=== PATIENT | female | born 1990 | race African-American/Black ===

== ENCOUNTER 2024-09-29 13:59 | Outpatient (CLI) | payer BC, SELFPAY ==
[2024-09-29 14:45] VITALS: BP 118/65; PULSE 108
[2024-09-29 15:00] VITALS: BP 115/65; PULSE 104
[2024-09-29 15:15] VITALS: BP 123/67; PULSE 102
[2024-09-29 15:30] VITALS: BP 121/68; PULSE 100
[2024-09-29 15:45] VITALS: BP 125/73; PULSE 98
[2024-09-29 15:50] VITALS: BP 118/65; PULSE 101
[2024-09-29 16:29] LABS: OBXCEM ROM Plus Negative (Negative)
--- OUTSIDE RECORDS SUMMARY | 2024-09-29 16:44 | XMS_ITS | Patient Health Summary ---
Author Organization [facility] Address [address] [place] [address] Care Team Providers Care Student Development Coordinator Name Role Phone Unavailable Primary Care Provider Unavailabl e Note from [facility],non-owned Affiliates and Associated Physician Practices is amultiple site organization consisting of ambulatory clinics and hospital sitesin [place], [place], [place] and [place]. This disclosure is being madepursuant to the Care Everywhere program and may not contain all information available regarding this patient. Last updated 18.[facility] Allergies * Shellfish Allergy(Swelling) Medications * Be aware that medications may not be up to date on this document. Alwaysverify current medications with the patient. * NIFEdipine CR 24hr (Adalat CC) 60 MG tablet Take 1 (one) tablet by mouth once daily Take on an empty stomach. * Vit-DSS-Fe Fum-FA ( vitamin with iron) tablet Take 1 (one) tablet by mouth once daily * aspirin (Aspirin) 81 MG chew tablet Take 2 (two) tablets by mouth once daily * vitamin D3 (Cholecalciferol) 10 MCG (400 UNIT) tablet Take 1 (one) tablet by mouth once daily * ascorbic acid (Vitamin C) 500 MG tablet Take 1 (one) tablet by mouth once daily * lactobacillus (FLORAGEN) Take 1 (one) capsule by mouth once daily * ferrous sulfate 325 (65 FE) MG tablet Take 1 (one) tablet by mouth once daily Reasons: Iron Deficiency Active Problems Problem Noted Date Diagnosed Date Obesity affecting 06/04/2024 Class 1 obesity in adult 06/04/2024 Prediabetes in mother during Supervision of high-risk , unspecified trimester 05/07/2024 Pre-existing hypertension du ring in second trimester 05/07/2024 Advanced maternal age in multigravida, second tr imester 05/07/2024 Hx of preeclampsia, prior pr egnancy, currently , second trimester 05/07/2024 Social History Tobacco Use Types Packs/Day Years Used Date Smoking Tobacco: Never Smokeless Tobacco: Never Tobacco Cessation:Counseling Given: Not Answered Alcohol Use Standard Drinks/Week Comments Not Currently 0 (1 standard drink = 0.6 oz pur e alcohol) Estimated Date of Delivery Comme nts Yes 10/20/2024 Based on last me nstrual period of 01/14/2024 Sex and Gender Information Value Date Recorded Sex Assigned at Female 09/22/2024 10:13 AM WELL LOGGER Gender Identity Female 09/22/2024 10:13 AM WELL LOGGER Sexual Orientation Straight 09/22/2024 10 :13 AM WELL LOGGER Last Filed Vital Signs Vital Sign Reading Time Taken Comments Blood Pressure 118/76 09/29/2024 8:26 AM WELL LOGGER Pulse 92 09/29/2024 8:26 AM WELL LOGGER Temperature - - Respiratory Rate 18 06/04/2024 8:10 AM CDT Oxygen Saturation - - Inhaled Oxygen Concentration - - Weight 106.1 kg (233 lb 14.4 oz) 09/24/2024 8:05 AM WELL LOGGER Height 170.2 cm (5' 7 ) 07/30/2024 8:11 AM WELL LOGGER Body Mass Index 36.63 07/30/2024 8:11 AM WELL LOGGER Procedures * BIOPHYSICAL PROFILE W NST(Performed 09/29/2024) Performed for Pre-existing essential hypertension during in third trimester (HCC), Advanced maternal age in multigravida, third trimester (HCC), Hx of preeclampsia, prior , currently , second trimester ([facility]), Obesity affecting , antepartum, unspecified obesity type ([facility]), Prediabetes in mother during ([facility]), Encounter for ultrasound to assess growth ([facility]), Encounter for screening ([facility]) * BIOPHYSICAL PROFILE W NST(Performed 09/22/2024) Performed for Pre-existing essential hypertension during in third trimester (HCC), Advanced maternal age in multigravida, third trimester (HCC), Hx of preeclampsia, prior , currently , second trimester (HCC), Obesity affecting , antepartum, unspecified obesity type ([facility]), Prediabetes in mother during ([facility]), Encounter for ultrasound to assess growth (HCC), Encounter for screening (HCC) * BIOPHYSICAL PROFILE W NST(Performed 09/15/2024) Performed for Pre-existing essential hypertension during in third trimester (HCC), Advanced maternal age in multigravida, third trimester (HCC), Hx of preeclampsia, prior , currently , second trimester (HCC), Obesity affecting , antepartum, unspecified obesity type (HCC), Prediabetes in mother during (HCC), Encounter for ultrasound to assess growth (HCC), Encounter for screening (HCC) * BIOPHYSICAL PROFILE W NST(Performed 09/08/2024) Performed for Pre-existing essential hypertension during in third trimester (HCC), Advanced maternal age in multigravida, third trimester (HCC), Hx of preeclampsia, prior , currently , second trimester (HCC), Obesity affecting , antepartum, unspecified obesity type (HCC), Prediabetes in mother during (HCC), Encounter for ultrasound to assess growth (HCC), Encounter for screening (HCC) * BIOPHYSICAL PROFILE W NST(Performed 09/01/2024) Performed for Pre-existing essential hypertension during in third trimester (HCC), Advanced maternal age in multigravida, third trimester (HCC), Hx of preeclampsia, prior , currently , second trimester (HCC), Obesity affecting , antepartum, unspecified obesity type (HCC), Prediabetes in mother during (HCC), Encounter for ultrasound to assess growth (HCC), Encounter for screening ([facility]) * BIOPHYSICAL PROFILE W NST(Performed 08/27/2024) Performed for Pre-existing essential hypertension during in third trimester (HCC), Advanced maternal age in multigravida, third trimester (HCC), Hx of preeclampsia, prior , currently , second trimester (HCC), Obesity affecting , antepartum, unspecified obesity type (HCC), Prediabetes in mother during (HCC), Encounter for ultrasound to assess growth (HCC), Encounter for screening ([facility]) * PROTEIN CREATININE RATIO URINE RANDOM PNL(Performed 08/04/2024) * TSH REFLEX FREE T4(Performed 08/04/2024) * SONOGRAM - COMPLETE(Performed 07/30/2024) Performed for Supervision of high-risk , unspecified trimester (HCC), Pre-existing essential hypertension during in second trimester (HCC), Advanced maternal age in multigravida, second trimester (HCC), Hx of preeclampsia, prior , currently , second trimester (HCC), Obesity affecting , antepartum, unspecified obesity type (HCC), Prediabetes in mother during (HCC), 28 weeks gestation of (HCC) * SONOGRAM - COMPLETE(Performed 07/02/2024) Performed for Supervision of high-risk , unspecified trimester (HCC), Pre-existing essential hypertension during in second trimester (HCC), Advanced maternal age in multigravida, second trimester (HCC), Hx of preeclampsia, prior , currently , second trimester (HCC), Obesity affecting , antepartum, unspecified obesity type (HCC), Prediabetes in mother during (HCC), 24 weeks gestation of (HCC) * SONOGRAM - COMPLETE(Performed 06/04/2024) Performed for Supervision of high-risk , unspecified trimester (HCC), Pre-existing hypertension during in second trimester, unspecified pre- existing hypertension type (HCC), Advanced maternal age in multigravida, second trimester (HCC), Hx of preeclampsia, prior , currently , second trimester (HCC), 20 weeks gestation of (HCC) * COMPREHENSIVE METABOLIC PANEL(Performed 05/26/2024) * PROTEIN CREATININE RATIO URINE TIMED PNL(Performed 05/19/2024) * TSH(Performed 05/19/2024) * T4 FREE(Performed 05/19/2024) * COMPREHENSIVE METABOLIC PANEL(Performed 05/19/2024) * CREATININE CLEARANCE URINE TIMED + BLOOD(Performed 05/19/2024) * SONOGRAM - COMPLETE(Performed 05/07/2024) Performed for Chronic hypertension, Pre-eclampsia in second trimester ([facility]), History of cardiomyopathy, Pre-diabetes, Proteinuria affecting in second trimester ([facility]), Encounter for anatomic survey ([facility]) Results * BIOPHYSICAL PROFILE W NST (09/29/2024 7:30 AM WELL LOGGER) Only the most recent of6 resultswithin the time period is included. Linked Results Indication ======== CHTN on nifedipine, Pre-Diabetic A1C = 5.8%, Class I obesity AMA Prior preeclampsia 04/07/2024 Creatinine 0.65 mg/dL, Proteinuria 490 mg/day 05/19/2024 Creatinine 1.54 mg/dL, Proteinuria 156 mg/day 05/26/2024 Creatinine 0.53 mg/dL 08/04/2024 Proteinuria PCR 0.140 mg/mg History ====== OB History 6. Para 2 [id number] 1. live 2010. Gest. age 39 w + 0 d. Weight 2,331 g. Sex of child: female. Details: 2. live 2016. Gest. age 39 w + 0 d. Weight 3,175 g. Sex of child: male. Details: 3. elective termination 2020 4. elective termination 2021 5. elective termination 2023 Lab Tests Test Date Result NIPT Low risk Maternal Assessment = Physical Exam Height 170 cm, 5 ft 7 in. Weight 105 kg, 231 lb. Initial weight 101 kg, 222 lb. BMI 36.18 kg/m . Initial BMI 34.77 kg/m . Weight gain 4 kg, 9 lb Method ====== Transabdominal ultrasound examination. View: Sufficient ========= Rosales . Number of fetuses: 1 Dating ====== Date Details Gest. age BRIANNA LMP 01/14/2024 37 w + 0 d 10/20/2024 Stated BRIANNA 37 w + 0 d 10/20/2024 Assigned dating based on the LMP, selected on 07/02/2024 37 w + 0 d 10/20/2024 General Evaluation Cardiac activity present. FHR 153 bpm. Presentation: cephalic Placenta: Placental site: posterior Amniotic Fluid Assessment ===== Amount of AF: normal MVP 5.3 cm. MARIA G 14.2 cm. Q1 3.2 cm, Q2 2.1 cm, Q3 3.7 cm, Q4 5.3 cm Biophysical Profile 2: breathing movements 2: Gross body movements 2: tone 2: Amniotic fluid volume NST: reactive 05/22 Biophysical profile score Non Stress Test NST interpretation: reactive. Baseline FHR 120 bpm. Baseline variability: moderate. Accelerations: present. Decelerations: absent. Uterine activity: absent Growth Overview = Exam date GA BPD (mm) HC (mm) AC (mm) FL (mm) HL (mm) EFW (g) 07/02/2024 24w 2d 56.9 15% 226.5 46% 200.9 55% 41.9 19% 41 57% 676 39% 07/30/2024 28w 2d 72.6 66% 281.1 89% 251.2 74% 53.8 41% 50.6 80% 1350 71% 08/27/2024 32w 2d 82.1 64% 309.5 74% 281.4 46% 62.3 37% 55.3 50% 1991 47% 09/22/2024 36w 0d 87.2 35% 331.7 65% 321.1 61% 69.2 33% 62.4 72% 2822 51% Anatomy The following structures appear normal: Abdomen Stomach. Kidneys. Bladder. Impression ========= Single, live, intrauterine at 37w 0d Amniotic fluid volume: normal Biophysical profile: 05/22 Follow-up ======== Continue weekly BPP with 2x weekly NST Coding ====== Procedures 13076: US Uterus Limited 04624: Biophysical Profile W NST [facility] AG&P PACS Anatomical Region Laterality Modality Other 09/29/2024 7:30 AM WELL LOGGER Mindy Salvador MD [facility] ORDERABLES * TSH REFLEX FREE T4 (08/04/2024 8:19 AM WELL LOGGER) TSH with Reflex FT4 0.55 mIU/L [facility] Comment: Reference Range > or = 20 Years 0.40-4.50 Ranges First trimester 0.26-2.66 Second trimester 0.55-2.73 Third trimester 0.43-2.91 Test Performed at: [email or web address] [address] DIANNE MCCULLOUGH MD 08/04/2024 8:19 AM WELL LOGGER 08/04/2024 8:19 AM WELL LOGGER Jemma Miller APRN-ZINC SKIMMER LAB - CHEMI STRY ORDERABLES Performing Organization Address [facility] de Phone Number [address] [address] * PROTEIN CREATININE RATIO URINE RANDOM PNL (08/04/2024 8:19 AM WELL LOGGER) Creatinine Urine 150 20 - 275 mg/dL [facility] Protein/Creatinine Ratio 140 24 - 184 mg/g creat [facility] Protein/Creatinine Ratio 0.140 0.024 - 0.184 mg/mg creat [facility] Protein Random Urine 21 5 - 24 mg/dL [facility] Comment: Test Performed at: [email or web address] [address] DIANNE MCCULLOUGH MD 08/04/2024 8:19 AM WELL LOGGER 08/04/2024 8:19 AM WELL LOGGER Jemma ROMEO LAB - URINE CHEMISTRY ORDERABLES Performing Organization Address [facility] de Phone Number [address] [address] * SONOGRAM - COMPLETE (07/30/2024 7:36 AM WELL LOGGER) Only the most recent of4 resultswithin the time period is included. Linked Results Indication ======== CHTN on nifedipine, Pre-Diabetic A1C = 5.8%, Class I obesity AMA 34 years at BRIANNA with low-risk cf-DNA Prior H/O preeclampsia 04/07/2024 Creatinine 0.65 mg/dL, proteinuria 490 mg/day 05/19/2024 Creatinine 1.54 mg/dL, proteinuria 156 mg/day 05/26/2024 Creatinine 0.53 mg/dL History ====== OB History 6. Para 2 [id number] 1. live 2010. Gest. age 39 w + 0 d. Weight 2,331 g. Sex of child: female. Details: 2. live 2016. Gest. age 39 w + 0 d. Weight 3,175 g. Sex of child: male. Details: 3. elective termination 2020 4. elective termination 2021 5. elective termination 2023 Lab Tests Test Date Result NIPT Low risk Maternal Assessment Physical Exam Height 170 cm, 5 ft 7 in. Weight 104 kg, 230 lb. Initial weight 101 kg, 222 lb. BMI 36.02 kg/m . Initial BMI 34.77 kg/m . Weight gain 4 kg, 8 lb Method ====== Transabdominal ultrasound ========= Rosales . Number of fetuses: 1 Dating ====== Date Details Gest. age BRIANNA LMP 01/14/2024 28 w + 2 d 10/20/2024 U/S 07/30/2024 based upon AC, BPD, Femur, HC 29 w + 3 d 10/12/2024 Assigned dating based on the LMP, selected on 07/02/2024 28 w + 2 d 10/20/2024 General Evaluation Cardiac activity present. FHR 141 bpm. Presentation: cephalic Placenta: Placental site: posterior Amniotic fluid: Amount of AF: normal. MVP 4.6 cm. MARIA G 15.6 cm. Q1 4.6 cm, Q2 2.7 cm, Q3 4.2 cm, Q4 4.1 cm Biometry BPD 72.6 mm 29w 1d 66% Hadlock HC 281.1 mm 30w 6d 89% Hadlock AC 251.2 mm 29w 2d 74% Hadlock Femur 53.8 mm 28w 4d 41% Hadlock Humerus 50.6 mm 29w 4d 80% Joaquín HC / AC 1.12 -/- Hadlock Weight Calculation: EFW 1,350 g 71% Hadlock EFW (lb,oz) 3 lb 0 oz EFW by Hadlock (IEC-[id number]-FL) appropriate Growth Overview Exam date GA BPD (mm) HC (mm) AC (mm) FL (mm) HL (mm) EFW (g) 07/02/2024 24w 2d 56.9 15% 226.5 46% 200.9 55% 41.9 19% 41 57% 676 39% 07/30/2024 28w 2d 72.6 66% 281.1 89% 251.2 74% 53.8 41% 50.6 80% 1350 71% Anatomy The following structures appear normal: Heart / Thorax 4-chamber view. Abdomen Stomach. Kidneys. Bladder. Impression ========= Single, live, intrauterine at 28w 2d size & amniotic fluid volume are normal No malformations were seen within the limitations of ultrasound Follow-up ======== Repeat CMP & proteinuria assessment Follow up ultrasound for growth at 32 weeks Start 2x-weekly NST & 1x-weekly BPP at 32 weeks Coding ====== Procedures 31206: US Preg Uterus Follow Up [facility] AG&P PACS Anatomical Region Laterality Modality Other 07/30/2024 7:36 AM WELL LOGGER Mindy Salvador MD [facility] ORDERABLES * COMPREHENSIVE METABOLIC PANEL (05/26/2024 8:02 AM CDT) Only the most recent of2 resultswithin the time period is included. Glucose 81 65 - 139 mg/dL [facility] Comment: Non-fasting reference interval BUN 7 7 - 25 mg/dL [facility] Creatinine 0.53 0.50 - 0.97 mg/dL [facility] eGFR by Cystatin C 124 > OR = 60 mL/min/1. 73m2 [facility] BUN/Creatinine Ratio SEE NOTE: 6 - 22 (calc) [facility] Comment: Not Reported: BUN and Creatinine are within reference range. Sodium 137 135 - 146 mmol/L [facility] Potassium 3.9 3.5 - 5.3 mmol/L [facility] Chloride 104 98 - 110 mmol/L [facility] CO2 24 20 - 32 mmol/L [facility] Calcium 9.2 8.6 - 10.2 mg/dL [facility] Protein Total 6.4 6.1 - 8.1 g/dL [facility] Albumin 3.8 3.6 - 5.1 g/dL [facility] Globulin Total 2.6 1.9 - 3.7 g/dL (calc) [facility] Albumin/Globulin Ratio 1.5 1.0 - 2.5 (calc) [facility] Bilirubin Total 0.4 0.2 - 1.2 mg/dL [facility] Alkaline Phosphatase 67 31 - 125 U/L [facility] AST 18 10 - 30 U/L [facility] ALT 20 6 - 29 U/L [facility] Comment: Test Performed at: [employer] [place] [address] DIANNE MCCULLOUGH MD 05/26/2024 8:02 AM CDT 05/29/2024 7:18 PM CDT Jemma Miller APRN-ZINC SKIMMER LAB - CHEMI STRY ORDERABLES Performing Organization Address [facility] Co de Phone Number [address] [phone] [place] [address] * (ABNORMAL) PROTEIN CREATININE RATIO URINE TIMED PNL (05/19/2024 3:15 PM CDT) Creatinine 24 Hour Urine 1.64 0.50 - 2.15 g/24 h [facility] Protein 24 Hour Urine 95 <150 mg/g creat [facility] Protein/Creatini ne Ratio 0.095 <0.150 mg/mg creat [facility] Protein 24 Hour Urine 156(H) <150 mg/24 h [facility] Comment: TOTAL URINE VOLUME: 2600/24 Test Performed at: [facility] [place] [address] DIANNE MCCULLOUGH MD 05/19/2024 3:15 PM CDT 05/19/2024 3:31 PM CDT Alesha Oliveros MD LAB - URINE CHEMISTR Y ORDERABLES [address] [address] [place] [address] * (ABNORMAL) CREATININE CLEARANCE URINE TIMED + BLOOD (05/19/2024 3:15 PM CDT) [facility] Creatinine 1.54(H) 0.50 - 0.97 mg/dL [facility] eGFR by Cystatin C 45(L) > OR = 60 mL/min/1.7 3m2 [facility] Creatinine 24 Hour Urine 1.64 0.50 - 2.15 g/24 h [facility] Body Surface Area 2.13 [facility] Creatinine Clearance 60(L) 75 - 115 mL/min [facility] Height Feet 5 ft [facility] Height Inches 7 in [facility] Weight Lbs 225 [facility] Comment: Test Performed at: [place] [address] DIANNE MCCULLOUGH MD 05/19/2024 3:15 PM CDT 05/19/2024 3:31 PM CDT Alesha Oliveros MD LAB - URINE CHEMISTR Y ORDERABLES Performing Organization Address [facility] de Phone Number [address] [address] * (ABNORMAL) TSH (05/19/2024 3:15 PM CDT) [facility] TSH 0.26(L) mIU/L [facility] Comment: Reference Range > or = 20 Years 0.40-4.50 Ranges First trimester 0.26-2.66 Second trimester 0.55-2.73 Third trimester 0.43-2.91 Test Performed at: [facility] [place] [address] DIANNE MCCULLOUGH MD 05/19/2024 3:15 PM CDT 05/19/2024 3:31 PM CDT Alesha Oliveros MD LAB - CHEMISTRY ORDE RABLES Performing Organization Address [facility] Co de Phone Number [address] [address] [place] [address] * T4 FREE (05/19/2024 3:15 PM CDT) T4 Free 1.1 0.8 - 1.8 ng/dL [facility] Comment: Test Performed at: [facility] [address] [place] [address] DIANNE MCCULLOUGH MD 05/19/2024 3:15 PM CDT 05/19/2024 3:31 PM CDT Alesha Oliveros MD LAB - CHEMISTRY YENI [facility] Organization Address City/State/ZIP Co de Phone Number [address] [address] [place] [address]
--- OUTSIDE RECORDS SUMMARY | 2024-09-29 16:44 | XMS_ITS | Clinical Summary ---
Author Organization [facility] Address [address] [place] [address] Care Team Providers Care Cutting Table Operator First Name Role Phone Unavailable Primary Care Provider Unavailabl e Source Comments [facility],non-owned Affiliates and Associated Physician Practices is amultiple site organization consisting of ambulatory clinics and hospital sitesin [place], [place], [place] and [place]. This disclosure is being madepursuant to the Care Everywhere program and may not contain all information available regarding this patient. Last updated 18.[facility] Allergies Active Allergy Reactions Criticality Noted Date Comments Shellfish Allergy Swelling 05/02/2024 Medications * Be aware that medications may not be up to date on this document. Alwaysverify current medications with the patient. Medication Sig Dispensed Refills Start Date End Date Status NIFEdipine CR 24hr (Adalat CC) 60 MG tablet Take 1 (one) tablet by mouth once daily Take on an empty stomach. Active Vit-DSS-Fe Fum-FA ( vitamin with iron) tablet Take 1 (one) tablet by mouth once daily Active aspirin (Aspirin) 81 MG chew tablet Take 2 (two) tablets by mouth once daily Active vitamin D3 (Cholecalciferol) 10 MCG (400 UNIT) tablet Take 1 (one) tablet by mouth once daily Active ascorbic acid (Vitamin C) 500 MG tablet Take 1 (one) tablet by mouth once daily Active lactobacillus (FLORAGEN) Take 1 (one) capsule by mouth once daily Active ferrous sulfate 325 (65 FE) MG tabletIndications:Ir on Deficiency Take 1 (one) tablet by mouth once daily Reasons: Iron Deficiency Active Active Problems Problem Noted Date Diagnosed Date Obesity affecting 06/04/2024 Class 1 obesity in adult 06/04/2024 Prediabetes in mother during Supervision of high-risk , unspecified trimester 05/07/2024 Pre-existing hypertension du ring in second trimester 05/07/2024 Advanced maternal age in multigravida, second tr imester 05/07/2024 Hx of preeclampsia, prior pr egnancy, currently , second trimester 05/07/2024 Estimated Date of Delivery Comme nts Yes 10/20/2024 Based on last me nstrual period of 01/14/2024 Encounters Date Type Department Care Team Description 09/29/2024 7:30 AM CONTROL OFFICER Hospital Encounter [facility] [address] [place] [address] HeadShilpa MD 09/24/2024 7:39 AM CONTROL OFFICER - 09/24/2024 11:59 PM CONTROL OFFICER Hospital Encounter [facility] [address] [place] [phone] Giovana Rios MD CYCLE CONSULTANT Discharge Disposition: Home or Self Care 09/22/2024 7:30 AM CONTROL OFFICER - 09/22/2024 11:59 PM CONTROL OFFICER Hospital Encounter [facility] [address] [place] [phone] Shilpa Husain MD Discharge Disposition: Home or Self Care 09/15/2024 7:30 AM CONTROL OFFICER - 09/15/2024 11:59 PM CONTROL OFFICER Hospital Encounter [facility] [address] [place] [address] Lexii Barrientos MD Discharge Disposition: Home or Self Care 09/08/2024 7:30 AM CONTROL OFFICER - 09/08/2024 11:59 PM CONTROL OFFICER Hospital Encounter [facility] [address] [place] [address] Get Salamanca MD Discharge Disposition: Home or Self Care 09/01/2024 2:26 PM CONTROL OFFICER - 09/01/2024 11:59 PM CONTROL OFFICER Hospital Encounter [facility] [address] [place] [address] Shilpa Husain MD Discharge Disposition: Home or Self Care 08/27/2024 7:26 AM CONTROL OFFICER - 08/27/2024 11:59 PM CONTROL OFFICER Hospital Encounter [facility] [address] [place], [place] [phone] Duarte Galarza MD Discharge Disposition: Home or Self Care 08/04/2024 Orders Only [facility] [address] [place] [address] Jemma Miller, SECURITY OFFICER SUPERVISOR-WIDE PIECE GOODS INSPECTOR 07/30/2024 7:30 AM CONTROL OFFICER - 07/30/2024 11:59 PM CONTROL OFFICER Hospital Encounter [facility] [address] [place], [place] [phone] Duarte Galarza MD Discharge Disposition: Home or Self Care 07/02/2024 7:29 AM CONTROL OFFICER - 07/02/2024 11:59 PM CONTROL OFFICER Hospital Encounter [facility] [address] [place] [phone] Alesha Oliveros MD Discharge Disposition: Home or Self Care from Last 3 Months Family History Medical History Relation Name Comments Hypertension Father Hypertension Mother Cancer - Stomach Paternal Grandfather Relation Name Status Comments Father Mother Paternal Grandfather Social History Tobacco Use Types Packs/Day Years [...] Sex Assigned at Female 09/22/2024 10:13 AM CONTROL OFFICER Gender Identity Female 09/22/2024 10:13 AM CONTROL OFFICER Sexual Orientation Straight 09/22/2024 10 :13 AM CONTROL OFFICER Last Filed Vital Signs Vital Sign Reading Time Taken Comments Blood Pressure 118/76 09/29/2024 8:26 AM CONTROL OFFICER Pulse 92 09/29/2024 8:26 AM CONTROL OFFICER Temperature - - Respiratory Rate 18 06/04/2024 8:10 AM CDT Oxygen Saturation - - Inhaled Oxygen Concentration - - Weight 106.1 kg (233 lb 14.4 oz) 09/24/2024 8:05 AM CONTROL OFFICER Height 170.2 cm (5' 7 ) 07/30/2024 8:1 1 AM CONTROL OFFICER Body Mass Index 36.63 07/30/2024 8:11 AM CONTROL OFFICER Plan of Treatment Upcoming Encounters Date Type Department Care Team (Late st Contact Info) Description 10/06/2024 7:30 AM CONTROL OFFICER Hospital Encounter [facility] [address] [place] [id number] 10/13/2024 7:30 AM CONTROL OFFICER Hospital Encounter [facility] [address] [place] [phone] 10/20/2024 7:30 AM CDT Appointment [facility] [address] [place] [phone] Health Maintenance Due Date Last Done Comments PAP SMEAR 1989 HIV SCREENING 2004 HEPATITIS C SCREENING 08/05/2007 DTAP/TDAP/TD VACCINES (1 - Tdap) 2008 HEPATITIS B VACCINE (1 of 3 - 19+ 3-dose series) 2008 COVID-19 VACCINE ( - 2023-2 5 season) 2024 11/26/2020, 10/29/2020 OB-ONE HOUR GLUCOSE 07/14/2024 OB-TDAP CURRENT 07/21/2024 OB-RHOGAM INJECTION 07/28/2024 DEPRESSION SCREENING 08/13/2024 OB-GROUP B STREP SCREEN 09/15/2024 ZOSTER VACCINE (1 of 2) 2039 INFLUENZA VACCINE Completed 05/27/2024 HIB VACCINE Aged Out No longer eligi ble based on patient's age to complete this topic HPV VACCINE Aged Out No longer eligi ble based on patient's age to complete this topic MENINGOCOCCAL (Group B) VACCINE Aged Out No longer eligible b ased on patient's age to complete this topic MENINGOCOCCAL VACCINE Aged Out No noah tyree eligible based on patient's age to complete this topic PNEUMOCOCCAL VACCINE Aged Out No long er eligible based on patient's age to complete this topic Respiratory Syncytial Virus (RSV) Vaccine Pt: or over 60 yrs (No Doses Required) Completed Procedures Procedure Name Priority Date/Time Associated Diagnosis Comments BIOPHYSICAL PROFILE W NST Routine 09/29/2024 7:30 AM CONTROL OFFICER Pre-existing essential hypertension during in third trimester (HCC) Advanced maternal age in multigravida, third trimester (HCC) Hx of preeclampsia, prior , currently , second trimester (HCC) Obesity affecting , antepartum, unspecified obesity type (HCC) Prediabetes in mother during (HCC) Encounter for ultrasound to assess growth (HCC) Encounter for screening (HCC) BIOPHYSICAL PROFILE W NST Routine 09/22/2024 7:43 AM CONTROL OFFICER Pre-existing essential hypertension during in third trimester (HCC) Advanced maternal age in multigravida, third trimester (HCC) Hx of preeclampsia, prior , currently , second trimester (HCC) Obesity affecting , antepartum, unspecified obesity type (HCC) Prediabetes in mother during (HCC) Encounter for ultrasound to assess growth (HCC) Encounter for screening (HCC) BIOPHYSICAL PROFILE W NST Routine 09/15/2024 7:34 AM CONTROL OFFICER Pre-existing essential hypertension during in third trimester (HCC) Advanced maternal age in multigravida, third trimester (HCC) Hx of preeclampsia, prior , currently , second trimester (HCC) Obesity affecting , antepartum, unspecified obesity type (HCC) Prediabetes in mother during (HCC) Encounter for ultrasound to assess growth (HCC) Encounter for screening (HCC) BIOPHYSICAL PROFILE W NST Routine 09/08/2024 7:37 AM CONTROL OFFICER Pre-existing essential hypertension during in third trimester (HCC) Advanced maternal age in multigravida, third trimester (HCC) Hx of preeclampsia, prior , currently , second trimester (HCC) Obesity affecting , antepartum, unspecified obesity type (HCC) Prediabetes in mother during (HCC) Encounter for ultrasound to assess growth (HCC) Encounter for screening (HCC) BIOPHYSICAL PROFILE W NST Routine 09/01/2024 3:35 PM CONTROL OFFICER Pre-existing essential hypertension during in third trimester (HCC) Advanced maternal age in multigravida, third trimester (HCC) Hx of preeclampsia, prior , currently , second trimester (HCC) Obesity affecting , antepartum, unspecified obesity type (HCC) Prediabetes in mother during (HCC) Encounter for ultrasound to assess growth (HCC) Encounter for screening ([facility]) BIOPHYSICAL PROFILE W NST Routine 08/27/2024 7:28 AM CONTROL OFFICER Pre-existing essential hypertension during in third trimester (HCC) Advanced maternal age in multigravida, third trimester (HCC) Hx of preeclampsia, prior , currently , second trimester (HCC) Obesity affecting , antepartum, unspecified obesity type (HCC) Prediabetes in mother during (HCC) Encounter for ultrasound to assess growth (HCC) Encounter for screening ([facility]) PROTEIN CREATININE RATIO URINE RANDOM PNL 08/04/2024 8:19 AM CONTROL OFFICER TSH REFLEX FREE T4 08/04/2024 8: 19 AM CONTROL OFFICER SONOGRAM - COMPLETE Routine 07/30/2024 7 :36 AM CONTROL OFFICER Supervision of high-risk , unspecified trimester (HCC) Pre-existing essential hypertension during in second trimester (HCC) Advanced maternal age in multigravida, second trimester (HCC) Hx of preeclampsia, prior , currently , second trimester (HCC) Obesity affecting , antepartum, unspecified obesity type (HCC) Prediabetes in mother during (HCC) 28 weeks gestation of (HCC) SONOGRAM - COMPLETE Routine 07/02/2024 7 :31 AM CONTROL OFFICER Supervision of high-risk , unspecified trimester (HCC) Pre-existing essential hypertension during in second trimester (HCC) Advanced maternal age in multigravida, second trimester (HCC) Hx of preeclampsia, prior , currently , second trimester (HCC) Obesity affecting , antepartum, unspecified obesity type (HCC) Prediabetes in mother during (HCC) 24 weeks gestation of (HCC) from Last 3 Months Results * BIOPHYSICAL PROFILE W NST (09/29/2024 7:30 AM CONTROL OFFICER) Only the most recent of6 resultswithin the time period is included. Linked Results Indication ======== CHTN on nifedipine, Pre-Diabetic A1C = 5.8%, Class I obesity AMA Prior preeclampsia 04/07/2024 Creatinine 0.65 mg/dL, Proteinuria 490 mg/day 05/19/2024 Creatinine 1.54 mg/dL, Proteinuria 156 mg/day 05/26/2024 Creatinine 0.53 mg/dL 08/04/2024 Proteinuria PCR 0.140 mg/mg History ====== OB History 6. Para 2 [id number] 1. live 2010. Gest. age 39 w [...] with 2x weekly NST Coding ====== Procedures 74317: [place] Uterus Limited 94815: Biophysical Profile W NST [facility] [employer] PACS Anatomical Region Laterality Modality Other 09/29/2024 7:30 AM CONTROL OFFICER Mindy Salvador MD [facility] ORDERABLES * TSH REFLEX FREE T4 (08/04/2024 8:19 AM CONTROL OFFICER) TSH with Reflex FT4 0.55 mIU/L [facility] Comment: Reference Range > or = 20 Years 0.40-4.50 Ranges First trimester 0.26-2.66 Second trimester 0.55-2.73 Third trimester 0.43-2.91 Test Performed at: [facility] [address] [address] DIANNE MCCULLOUGH MD 08/04/2024 8:19 AM CONTROL OFFICER 08/04/2024 8:19 AM CONTROL OFFICER Jemma Miller APRN-WIDE PIECE GOODS INSPECTOR LAB - CHEMI STRY ORDERABLES Performing Organization Address [facility] de Phone Number [address] [address] * PROTEIN CREATININE RATIO URINE RANDOM PNL (08/04/2024 8:19 AM CONTROL OFFICER) Creatinine Urine 150 20 - 275 mg/dL [facility] Protein/Creatinine Ratio 140 24 - 184 mg/g creat [facility] Protein/Creatinine Ratio 0.140 0.024 - 0.184 mg/mg creat [facility] Protein Random Urine 21 5 - 24 mg/dL [facility] Comment: Test Performed at: [address] [address] DIANNE MCCULLOUGH MD 08/04/2024 8:19 AM CONTROL OFFICER 08/04/2024 8:19 AM CONTROL OFFICER Jemma Miller APRN-WIDE PIECE GOODS INSPECTOR LAB - URINE CHEMISTRY ORDERABLES Performing Organization Address [facility] Co de Phone Number [address] [address] * SONOGRAM - COMPLETE (07/30/2024 7:36 AM CONTROL OFFICER) Only the most recent of2 resultswithin the time period is included. Linked Results Indication ======== CHTN on nifedipine, Pre-Diabetic A1C = 5.8%, Class I obesity AMA 34 years at [facility] with low-risk cf-DNA Prior H/O preeclampsia 04/07/2024 Creatinine 0.65 mg/dL, proteinuria 490 mg/day 05/19/2024 Creatinine 1.54 mg/dL, proteinuria 156 mg/day 05/26/2024 Creatinine 0.53 mg/dL History ====== OB History 6. Para 2 [id number] 1. live 2010. Gest. age 39 w [...] 3 lb 0 oz EFW by Hadlock (MMI-EA-NO-FL) appropriate Growth Overview Exam date [place] BPD [...] BPP at 32 weeks Coding ====== Procedures 23008: US Preg Uterus Follow Up [facility] [employer] PACS Anatomical Region Laterality Modality Other 07/30/2024 7:36 AM CONTROL OFFICER Mindy Salvador MD [facility] ORDERABLES from Last 3 Months [facility] Personal/Family Self 1990
--- OUTSIDE RECORDS SUMMARY | 2024-09-29 16:44 | XMS_ITS | Encounter Summary ---
Author Organization [facility] Address [address] [facility] [address] [place] [address] Care Team Providers Care Housing Assistant Property Manager Name Role Phone Teresa Portillo Primary Care Provider + Encounter Details Date Type Department Care Team (Late st Contact Info) Description 10/09/2016 Orders Only [facility] ProviderCordelia MD [address] [place] [phone] Social History Tobacco Use Types Packs/Day Years Used Date Smoking Tobacco: Never Assessed Comments Unknown Sex and Gender Information Value Date Recorded Sex Assigned at Not on file Legal Sex Female 1:34 PM CDT Gender Identity Not on file Sexual Orientation Not on file documented as of this encounter Plan of Treatment Not on file documented as of this encounter Procedures Procedure Name Priority Date/Time Associated Diagnosis Comments CARDIOLOGY REPORT 10/09/2016 documented in this encounter Results * CARDIOLOGY REPORT (10/09/2016) Anatomical Region Laterality Modality Other Narrative 10/09/2016 Ordered by an unspecified provider. Historical Provider [facility]EN[facility] Final Result documented in this encounter Visit Diagnoses Not on filedocumented in this encounter Additional Health Concerns Infection Onset Date Last Indicated Resolved Time COVID: Suspected 03/23/2023 03/23/2023 03/23/2023 7:46 PM CDT documented as of this encounter Care Teams Housing Assistant Property Manager Relationship Specialty Start Date End Date Teresa Portillo PA PCP - General Physician Glass Blowing Instructor 09/26/22 documented as of this encounter
--- OUTSIDE RECORDS SUMMARY | 2024-09-29 16:44 | XMS_ITS | Referral Summary ---
Author Organization [facility] Address [address] [place] [address] Care Team Providers Care Plumbing Warehouse Helper Name Role Phone Unavailable Primary Care Provider Unavailabl e Source Comments [facility],non-owned Affiliates and Associated Physician Practices is [facility] consisting of ambulatory clinics and hospital sitesin [place], [place] and [place]. This disclosure is being madepursuant to the Care Everywhere program and may not contain all information available regarding this patient. Last updated 18.[facility] Encounters Date Type Department Care Team Description 09/29/2024 7:30 AM INVESTMENT BANKER Hospital Encounter Formerly [facility] [address] [place] [phone] Shilpa Husain MD 09/24/2024 7:39 AM INVESTMENT BANKER - 09/24/2024 11:59 PM INVESTMENT BANKER Hospital Encounter Formerly [facility] [address] [place] [phone] Giovana Rios MD PAPER GUILLOTINE OPERATOR Discharge Disposition: Home or Self Care 09/22/2024 7:30 AM INVESTMENT BANKER - 09/22/2024 11:59 PM INVESTMENT BANKER Hospital Encounter Formerly [facility] [address] [place] [phone] Shilpa Husain MD Discharge Disposition: Home or Self Care 09/15/2024 7:30 AM INVESTMENT BANKER - 09/15/2024 11:59 PM INVESTMENT BANKER Hospital Encounter Formerly [facility] [address] [place] [phone] Lexii Barrientos MD Discharge Disposition: Home or Self Care 09/08/2024 7:30 AM INVESTMENT BANKER - 09/08/2024 11:59 PM INVESTMENT BANKER Hospital Encounter Formerly [facility] [address] [place] [address] Get Salamanca MD Discharge Disposition: Home or Self Care 09/01/2024 2:26 PM INVESTMENT BANKER - 09/01/2024 11:59 PM INVESTMENT BANKER Hospital Encounter Formerly [facility] [address] [place] [address] Rodrigue, Shilpa Lewis MD Discharge Disposition: Home or Self Care 08/27/2024 7:26 AM INVESTMENT BANKER - 08/27/2024 11:59 PM INVESTMENT BANKER Hospital Encounter Formerly [facility] [address] [place] [address] Duarte Galarza MD Discharge Disposition: Home or Self Care 08/04/2024 Orders Only Formerly [facility] [address] [place] [address] Jemma Miller, PRODUCT ASSEMBLER-FOOD ADVISER 07/30/2024 7:30 AM INVESTMENT BANKER - 07/30/2024 11:59 PM INVESTMENT BANKER Hospital Encounter [facility]ly [facility] [address] [place] [address] Duarte Galarza MD Discharge Disposition: Home or Self Care 07/02/2024 7:29 AM INVESTMENT BANKER - 07/02/2024 11:59 PM INVESTMENT BANKER Hospital Encounter Formerly [facility] [address] [place] [address] Alesha Oliveros MD Discharge Disposition: Home or Self Care from Last 3 Months Allergies Active Allergy Reactions Criticality Noted Date [...] on last me nstrual period of 01/14/2024 Social History Tobacco Use Types Packs/Day Years [...] Sex Assigned at Female 09/22/2024 10:13 AM INVESTMENT BANKER Gender Identity Female 09/22/2024 10:13 AM INVESTMENT BANKER Sexual Orientation Straight 09/22/2024 10 :13 AM INVESTMENT BANKER Last Filed Vital Signs Vital Sign Reading Time Taken Comments Blood Pressure 118/76 09/29/2024 8:26 AM INVESTMENT BANKER Pulse 92 09/29/2024 8:26 AM INVESTMENT BANKER Temperature - - Respiratory Rate 18 06/04/2024 8:10 AM CDT Oxygen Saturation - - Inhaled Oxygen Concentration - - Weight 106.1 kg (233 lb 14.4 oz) 09/24/2024 8:05 AM INVESTMENT BANKER Height 170.2 cm (5' 7 ) 07/30/2024 8:11 AM INVESTMENT BANKER Body Mass Index 36.63 07/30/2024 8:11 AM INVESTMENT BANKER Plan of Treatment Upcoming Encounters Date Type Department Care Team (Late st Contact Info) Description 10/06/2024 7:30 AM INVESTMENT BANKER Hospital Encounter [facility] [address] [place] [phone] 10/13/2024 7:30 AM INVESTMENT BANKER Hospital Encounter [facility]ly [facility] [address] [place] [phone] 10/20/2024 7:30 AM CDT Appointment Formerly [facility] [address] [place] [phone] Procedures Procedure Name Priority Date/Time Associated Diagnosis Comments BIOPHYSICAL PROFILE W NST Routine 09/29/2024 7:30 AM INVESTMENT BANKER Pre-existing essential hypertension during in third trimester (HCC) Advanced maternal age in multigravida, third trimester (HCC) Hx of preeclampsia, prior , currently , second trimester (HCC) Obesity affecting , antepartum, unspecified obesity type (HCC) Prediabetes in mother during (HCC) Encounter for ultrasound to assess growth ([facility]) Encounter for screening ([facility]) BIOPHYSICAL PROFILE W NST Routine 09/22/2024 7:43 AM INVESTMENT BANKER Pre-existing essential hypertension during in third trimester (HCC) Advanced maternal age in multigravida, third trimester (HCC) Hx of preeclampsia, prior , currently , second trimester (HCC) Obesity affecting , antepartum, unspecified obesity type (HCC) Prediabetes in mother during (HCC) Encounter for ultrasound to assess growth (HCC) Encounter for screening ([facility]) BIOPHYSICAL PROFILE W NST Routine 09/15/2024 7:34 AM INVESTMENT BANKER Pre-existing essential hypertension during in third trimester (HCC) Advanced maternal age in multigravida, third trimester (HCC) Hx of preeclampsia, prior , currently , second trimester (HCC) Obesity affecting , antepartum, unspecified obesity type (HCC) Prediabetes in mother during (HCC) Encounter for ultrasound to assess growth (HCC) Encounter for screening (HCC) BIOPHYSICAL PROFILE W NST Routine 09/08/2024 7:37 AM INVESTMENT BANKER Pre-existing essential hypertension during in third trimester (HCC) Advanced maternal age in multigravida, third trimester (HCC) Hx of preeclampsia, prior , currently , second trimester (HCC) Obesity affecting , antepartum, unspecified obesity type (HCC) Prediabetes in mother during (HCC) Encounter for ultrasound to assess growth (HCC) Encounter for screening (HCC) BIOPHYSICAL PROFILE W NST Routine 09/01/2024 3:35 PM INVESTMENT BANKER Pre-existing essential hypertension during in third trimester (HCC) Advanced maternal age in multigravida, third trimester (HCC) Hx of preeclampsia, prior , currently , second trimester (HCC) Obesity affecting , antepartum, unspecified obesity type (HCC) Prediabetes in mother during (HCC) Encounter for ultrasound to assess growth (HCC) Encounter for screening (HCC) BIOPHYSICAL PROFILE W NST Routine 08/27/2024 7:28 AM INVESTMENT BANKER Pre-existing essential hypertension during in third trimester (HCC) Advanced maternal age in multigravida, third trimester (HCC) Hx of preeclampsia, prior , currently , second trimester (HCC) Obesity affecting , antepartum, unspecified obesity type (HCC) Prediabetes in mother during (HCC) Encounter for ultrasound to assess growth (HCC) Encounter for screening (HCC) PROTEIN CREATININE RATIO URINE RANDOM PNL 08/04/2024 8:19 AM INVESTMENT BANKER TSH REFLEX FREE T4 08/04/2024 8: 19 AM INVESTMENT BANKER SONOGRAM - COMPLETE Routine 07/30/2024 7 :36 AM INVESTMENT BANKER Supervision of high-risk , unspecified trimester (HCC) Pre-existing essential hypertension during in second trimester (HCC) Advanced maternal age in multigravida, second trimester (HCC) Hx of preeclampsia, prior , currently , second trimester (HCC) Obesity affecting , antepartum, unspecified obesity type (HCC) Prediabetes in mother during (HCC) 28 weeks gestation of (HCC) SONOGRAM - COMPLETE Routine 07/02/2024 7 :31 AM INVESTMENT BANKER Supervision of high-risk , unspecified trimester (HCC) [...] BIOPHYSICAL PROFILE W NST (09/29/2024 7:30 AM INVESTMENT BANKER) Only the most recent of6 resultswithin the time period is included. Linked Results Indication ======== CHTN on nifedipine, Pre-Diabetic A1C = 5.8%, Class I obesity AMA Prior preeclampsia 04/07/2024 Creatinine 0.65 mg/dL, Proteinuria 490 mg/day 05/19/2024 Creatinine 1.54 mg/dL, Proteinuria 156 mg/day 05/26/2024 Creatinine 0.53 mg/dL 08/04/2024 Proteinuria PCR 0.140 mg/mg History ====== OB History 6. Para 2 [id number] 1. live 2010. Gest. age 39 w [...] with 2x weekly NST Coding ====== Procedures [id number]: [place] Uterus Limited 51075: Biophysical Profile W NST [facility] PACS Anatomical Region Laterality Modality Other 09/29/2024 7:30 AM INVESTMENT BANKER Mindy Salvador MD [facility] ORDERABLES * TSH REFLEX FREE T4 (08/04/2024 8:19 AM INVESTMENT BANKER) TSH with Reflex FT4 0.55 mIU/L [facility] Comment: Reference Range > or = 20 Years 0.40-4.50 Ranges First trimester 0.26-2.66 Second trimester 0.55-2.73 Third trimester 0.43-2.91 Test Performed at: [facility] [address] DIANNE MCCULLOUGH MD 08/04/2024 8:19 AM INVESTMENT BANKER 08/04/2024 8:19 AM INVESTMENT BANKER Jemma Miller APRN-FOOD ADVISER LAB - CHEMI STRY ORDERABLES [address] [address] * PROTEIN CREATININE RATIO URINE RANDOM PNL (08/04/2024 8:19 AM INVESTMENT BANKER) Creatinine Urine 150 20 - 275 mg/dL [facility] Protein/Creatinine Ratio 140 24 - 184 mg/g creat [facility] Protein/Creatinine Ratio 0.140 0.024 - 0.184 mg/mg creat [facility] Protein Random Urine 21 5 - 24 mg/dL [facility] Comment: Test Performed at: [facility] [address] DIANNE MCCULLOUGH MD 08/04/2024 8:19 AM INVESTMENT BANKER 08/04/2024 8:19 AM INVESTMENT BANKER Jemma Miller PRODUCT ASSEMBLER-FOOD ADVISER LAB - URINE CHEMISTRY ORDERABLES [facility] [address] [place] [address] * SONOGRAM - COMPLETE (07/30/2024 7:36 AM INVESTMENT BANKER) Only the most recent of2 resultswithin the time period is included. Linked Results Indication ======== CHTN on nifedipine, Pre-Diabetic A1C = 5.8%, Class I obesity AMA 34 years at [facility] with low-risk cf-DNA Prior H/O preeclampsia 04/07/2024 Creatinine 0.65 mg/dL, proteinuria 490 mg/day 05/19/2024 Creatinine 1.54 mg/dL, proteinuria 156 mg/day 05/26/2024 Creatinine 0.53 mg/dL History ====== OB History 6. Para 2 [id number] 1. live 2010. Gest. age 39 w [...] 3 lb 0 oz EFW by [facility]lock ([id number]) appropriate Growth Overview Exam date [place] BPD [...] BPP at 32 weeks Coding ====== Procedures [id number]: US Preg [facility]us [facility] Anatomical Region Laterality Modality Other 07/30/2024 7:36 AM INVESTMENT BANKER Mindy Salvador MD [facility] ORDERABLES from Last 3 Months Ludwig Chung Personal/Family Self 1990
--- OUTSIDE RECORDS SUMMARY | 2024-09-29 16:45 | XMS_ITS | Encounter Summary ---
Author Organization [facility] Address [address] [facility] [place] [address] Care Team Providers Care Plush Brusher Name Role Phone Unavailable Primary Care Provider Unavailabl e Reason for Referral * (Routine) - Open Specialty Diagnoses / Procedures Referred By Contac t Referred To Contact Diagnoses Pre-existing essential hypertension during in second trimester (HCC) Advanced maternal age in multigravida, second trimester (HCC) Hx of preeclampsia, prior , currently , second trimester ([facility]) Obesity affecting , antepartum, unspecified obesity type ([facility]) Prediabetes in mother during (HCC) Encounter for ultrasound to assess growth (HCC) Encounter for screening ([facility]) Procedures BIOPHYSICAL PROFILE W NST Mindy Salvador MD [address] [place] [address] Referral ID Status Reason Start Date Expiration Date Visits Re quested Visits Authorized [id number] Open 08/20/2024 08/20/2025 6 6 ENTERS HELPER Reason for Visit * Reason Comments Ultrasound Non-stress Test Encounter Details Date Type Department Care Team (Late st Contact Info) Description 09/29/2024 7:30 AM CARPENTERS HELPER Hospital Encounter [facility] Maternal & Care [address] [place] [address] Head, Shilpa Lewis MD [address] [place] [address] Social History Tobacco Use Types Packs/Day Years Used Date Smoking Tobacco: Never Smokeless Tobacco: Never Alcohol Use Standard Drinks/Week Comments Not Currently 0 (1 standard drink = 0.6 oz pur e alcohol) Estimated Date of Delivery Comme nts Yes 10/20/2024 Based on last me nstrual period of 01/14/2024 Sex and Gender Information Value Date Recorded Sex Assigned at Female 09/22/2024 10:13 AM CARPENTERS HELPER Gender Identity Female 09/22/2024 10:13 AM CARPENTERS HELPER Sexual Orientation Straight 09/22/2024 10 :13 AM CARPENTERS HELPER documented as of this encounter Last Filed Vital Signs Vital Sign Reading Time Taken Comments Blood Pressure 118/76 09/29/2024 8:26 AM CARPENTERS HELPER Pulse 92 09/29/2024 8:26 AM CARPENTERS HELPER Temperature - - Respiratory Rate - - Oxygen Saturation - - Inhaled Oxygen Concentration - - Weight - - Height - - Body Mass Index - - documented in this encounter Progress Notes * Bettye Yang, RN - 09/29/2024 8:28 AM CST Patient here today for screening. Patient reports positive movement, all the time .Denies cramping, contractions, vaginal bleeding and leakage of fluid. Denies headache, visual changes, and RUQ pain. Patient to continue weekly BPP/NST with MFM and second NST with her OB. Bettye Yang RN 09/29/2024 8:31 AM ENTERS HELPER documented in this encounter Plan of Treatment Upcoming Encounters Date Type Department Care Team (Late st Contact Info) Description 10/06/2024 7:30 AM CARPENTERS HELPER Hospital Encounter [facility] Maternal & Care [address] [place] [phone] 10/13/2024 7:30 AM CARPENTERS HELPER Hospital Encounter [facility] Maternal & Care [address] [place] [phone] 10/20/2024 7:30 AM CDT Appointment [facility] Maternal & Care [address] [place] [phone] documented as of this encounter Procedures Procedure Name Priority Date/Time Associated Diagnosis Comments BIOPHYSICAL PROFILE W NST Routine 09/29/2024 7:30 AM CARPENTERS HELPER Pre-existing essential hypertension during in third trimester ([facility]) Advanced maternal age in multigravida, third trimester (HCC) Hx of preeclampsia, prior , currently , second trimester (HCC) Obesity affecting , antepartum, unspecified obesity type ([facility]) Prediabetes in mother during ([facility]) Encounter for ultrasound to assess growth ([facility]) Encounter for screening ([facility]) documented in this encounter Results * BIOPHYSICAL PROFILE W NST (09/29/2024 7:30 AM CARPENTERS HELPER) Linked Results Indication ======== CHTN on nifedipine, Pre-Diabetic A1C = 5.8%, Class I obesity AMA Prior preeclampsia 04/07/2024 Creatinine 0.65 mg/dL, Proteinuria 490 mg/day 05/19/2024 Creatinine 1.54 mg/dL, Proteinuria 156 mg/day 05/26/2024 Creatinine 0.53 mg/dL 08/04/2024 Proteinuria PCR 0.140 mg/mg History ====== OB History 6. Para 2 [id number] 1. live 2010. Gest. age 39 w [...] with 2x weekly NST Coding ====== Procedures [id number]: US Uterus Limited 40450: Biophysical Profile W NST . [facility] Science PACS Anatomical Region Laterality Modality Other 09/29/2024 7:30 AM CARPENTERS HELPER Mindy Salvador MD [facility] ORDERABLES documented in this encounter Visit Diagnoses Diagnosis Supervision of high-risk , unspecified trimester ([facility])- Primary Advanced maternal age in multigravida, second trimester ([facility]) Hx of preeclampsia, prior , currently , second trimester ([facility]) Obesity affecting , antepartum, unspecified obesity type ([facility]) Prediabetes in mother during ([facility]) 36 weeks gestation of ([facility]) state, incidental Pre-existing essential hypertension during in third trimester ([facility]) Advanced maternal age in multigravida, third trimester ([facility]) Encounter for ultrasound to assess growth ([facility]) Encounter for screening ([facility]) Supervision of high-risk , unspecified trimester ([facility])- Primary Advanced maternal age in multigravida, second trimester ([facility]) Hx of preeclampsia, prior , currently , second trimester ([facility]) Prediabetes in mother during ([facility]) Supervision of high-risk , unspecified trimester ([facility])- Primary Advanced maternal age in multigravida, second trimester ([facility]) Hx of preeclampsia, prior , currently , second trimester ([facility]) Prediabetes in mother during ([facility]) Encounter for screening ([facility]) 39 weeks gestation of ([facility]) state, incidental documented in this encounter
--- OUTSIDE RECORDS SUMMARY | 2024-09-29 16:45 | XMS_ITS | Clinical Summary ---
Author Organization [facility] Address [address] [place] [id number] Care Team Providers Care Pickle Processor Name Role Phone Teresa Portillo Primary Care Provider + Allergies No known active allergies Medications cyclobenzaprine (FLEXERIL) 10 mg tablet Take 1 tablet (10 mg total) by mouth 3 (three) times a day as needed for muscle spasms 12 tablet 3 Active ondansetron ODT (ZOFRAN-ODT) 4 mg disintegrating tablet Take 1 tablet (4 mg total) by mouth every 8 (eight) hours as needed for nausea or vomiting 20 tablet 3 Active Social History Tobacco Use Types Packs/Day Years Used Date Smoking Tobacco: Never Assessed Personal Safety Answer Date Recorded Have you ever been in or are you currently in a harmful physical or emotional relationship or is someone making you feel afraid or unsafe? Denies 02/07/2024 Comments No Sex and Gender Information Value Date Recorded Sex Assigned at Not on file Legal Sex Female 1:34 PM CDT Gender Identity Not on file Sexual Orientation Not on file Obstetrics History Last Filed Vital Signs Vital Sign Reading Time Taken Comments Blood Pressure 139/78 02/07/2024 5:35 PM CDT Pulse 78 02/07/2024 5:35 PM CDT Temperature 36.7 C (98.1 F) 02/07/2024 2:25 PM CDT Respiratory Rate 18 02/07/2024 5:35 PM CDT Oxygen Saturation 100% 02/07/2024 5:35 PM CDT Inhaled Oxygen Concentration - - Weight 101.1 kg (222 lb 14.2 oz) 02/07/2024 2:25 PM CDT Height 170.2 cm (5' 7 ) 02/07/2024 2:25 PM CDT Body Mass Index 34.91 02/07/2024 2:25 PM CDT Plan of Treatment Health Maintenance Due Date Last Done Comments Cervical Cancer Screening 1989 Depression Screening 1989 Hepatitis C Screening 1989 DTaP/Tdap/Td Vaccine (1 - Tdap) 2000 Varicella Vaccines (1 of 2 - 13+ 2-dose series) 2002 Hepatitis B Screening 2007 Regular Well Visit/Exam 18-64 2007 Covid-19 Vaccine (3 - 2023-2 5 season) 2024 11/26/2020, 10/29/2020 Influenza Vaccine (#1) 2024 HPV Vaccines Aged Out No longer eligi ble based on patient's age to complete this topic Pneumococcal vaccine <65 Aged Out No longer eligible based on patient's age to complete this topic Insurance [facility] M[facility] Care Teams Pickle Processor Relationship Specialty Start Date End Date Teresa Portillo PA PCP - General Physician Beverage Specialist 09/26/22
--- OUTSIDE RECORDS SUMMARY | 2024-09-29 16:45 | XMS_ITS | Data Portability ---
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 Lab CMP, serum or plasma 2022 023 [facility], [address] [place] [address], [address], [place], [address], 19:08:33 lipid panel, serum 2022 023 [facility], [address] [place] [address], [address], [place], [address], 19:08:33 CBC w/ auto diff 2022 023 [facility], [address] [place] [address], [address], [place], [address], 19:08:34 microalbumi n/creatinin e, mass ratio, urine 2022 023 [facility], [address], [address], [place], [address], 3 10:13:47 Referral None recorded. Procedures None recorded. Surgeries None recorded. Imaging None recorded. Medication Orders nifedipine ER 30 mg tablet,exte nded release 24 hr 2023 024 [id number], [address] [place], [place], [id number], 4 10:03:21 Patient TargetsNo targets recorded. Patient Instructions Encounter Date Encounter Id Patient Instructions Last Modified By Organization Details Last Modified Time 12/04/2023 [id number] A healthy lifestyle: care instructions Not available 12/04/2023 14:06:07 Reason for Referral None Reported. Results Created Date Observation Date Name Description Value Unit Range Abnormal Flag Note LastModifiedBy Organization Detail LastModifiedTime 03/26/2003/26/2023 LIPID PANEL cholesterol, total 132 mg/dL 100-19 9 Not Available [facility] [address] [place], [address], 03/26/2023 19:08:33 03/26/2003/26/2023 LIPID PANEL triglyceride s 72 mg/dL 0-149 Not Available [facility] [address] [place], [address], 03/26/2023 19:08:33 03/26/2003/26/2023 LIPID PANEL HDL cholesterol 50 mg/dL 40-999 Not Available [facility] [address] [place], [address], 03/26/2023 19:08:33 03/26/20 23 03/26/2023 LIPID PANEL VLDL cholesterol leann 14 mg/dL 5-40 Not Available [facility] [address] [place], [address], 03/26/2023 19:08:33 03/26/20 23 03/26/2023 LIPID PANEL LDL chol calc (nih) 77 mg/dL 0-99 Not Available [facility] [address] [place], [address], 03/26/2023 19:08:33 03/26/20 23 03/26/2023 COMP. METAB OLIC PANEL (14) glucose 87 mg/dL 70-99 Not Available [facility] [address] [place] [address], [address], 03/26/2023 19:08:33 03/26/20 23 03/26/2023 COMP. METAB OLIC PANEL (14) BUN 10 mg/dL 6-20 Not Available [facility] [address] [place] [address], [address], 03/26/2023 19:08:33 03/26/20 23 03/26/2023 COMP. METAB OLIC PANEL (14) creatinine 0.77 mg/dL 0.76-1 .27 Not Available [facility] [address] [place], [address], 03/26/2023 19:08:33 03/26/20 23 03/26/2023 COMP. METAB OLIC PANEL (14) eGFR 104 >=60 Units for eGFR value s are mL/mi n/1.7 3 The eGFR Calcu latio n has not been valid ated for patie nts under the age of 18. If test resul ts are displ ayed for a patie nt under the age of 18, disre noni that value . Not Available [facility] [address] [place] [address], [address], 03/26/2023 19:08:33 03/26/20 23 03/26/2023 COMP. METAB OLIC PANEL (14) BUN/creatini ne ratio 13 9-23 Not Available [facility] [address] [place], [address], 03/26/2023 19:08:33 03/26/20 23 03/26/2023 COMP. METAB OLIC PANEL (14) sodium 138 mmol/ L 134-14 4 Not Available [facility] [address] [place], [address], 03/26/2023 19:08:33 03/26/20 23 03/26/2023 COMP. METAB OLIC PANEL (14) potassium 4.0 mmol/ L 3.5-5. 2 Not Available [facility] [address] [place], [address], 03/26/2023 19:08:33 03/26/20 23 03/26/2023 COMP. METAB OLIC PANEL (14) chloride 102 mmol/ L 96-106 Not Available [facility] [address] [place] [address], [address], 03/26/2023 19:08:33 03/26/20 23 03/26/2023 COMP. METAB OLIC PANEL (14) carbon dioxide, total 24 mmol/ L 20-29 Not Available [facility] [address] [place], [address], 03/26/2023 19:08:33 03/26/20 23 03/26/2023 COMP. METAB OLIC PANEL (14) calcium 9.6 mg/dL 8.7-10 .2 Not Available [facility] [address] [place], [address], 03/26/2023 19:08:33 03/26/20 23 03/26/2023 COMP. METAB OLIC PANEL (14) protein, total 7.7 g/dL 6.0-8. 5 Not Available [facility] [address] [place], [address], 03/26/2023 19:08:33 03/26/20 23 03/26/2023 COMP. METAB OLIC PANEL (14) albumin 4.7 g/dL 3.9-4. 9 Not Available [facility] [address] [place], [address], 03/26/2023 19:08:33 03/26/20 23 03/26/2023 COMP. METAB OLIC PANEL (14) globulin, total 3.0 g/dL 1.5-4. 5 Not Available [facility] [address] [place], [address], 03/26/2023 19:08:33 03/26/20 23 03/26/2023 COMP. METAB OLIC PANEL (14) A/G ratio 1.6 1.2-2. 2 Not Available [facility] [address] [place], [address], 03/26/2023 19:08:33 03/26/20 23 03/26/2023 COMP. METAB OLIC PANEL (14) bilirubin, total 0.5 mg/dL 0.0-1. 2 Not Available [facility] [address] [place], [address], 03/26/2023 19:08:33 03/26/20 23 03/26/2023 COMP. METAB OLIC PANEL (14) alkaline phosphatase 79 IU/L 44-121 Not Available [facility] [address] [place], [address], 03/26/2023 19:08:33 03/26/20 23 03/26/2023 COMP. METAB OLIC PANEL (14) AST (SGOT) 27 IU/L 0-40 Not Available [facility] [address] [place], [address], 03/26/2023 19:08:33 03/26/20 23 03/26/2023 COMP. METAB OLIC PANEL (14) ALT (SGPT) 30 IU/L 0-32 Not Available [facility] [address] [place], [address], 03/26/2023 19:08:33 03/26/20 23 03/26/2023 CBC WITH DIFFE RENTI AL/PL ATELE T WBC 6.0 x10e3 /uL 3.4-10 .8 Not Available [facility] [address] [place], [address], 03/26/2023 19:08:34 03/26/20 23 03/26/2023 CBC WITH DIFFE RENTI AL/PL ATELE T RBC 4.29 x10e6 /uL 3.77-5 .28 Not Available [facility] [address] [place], [address], 03/26/2023 19:08:34 03/26/20 23 03/26/2023 CBC WITH DIFFE RENTI AL/PL ATELE T hemoglobin 12.6 g/dL 11.1-1 5.9 Not Available [facility] [address] [place], [address], 03/26/2023 19:08:34 03/26/20 23 03/26/2023 CBC WITH DIFFE RENTI AL/PL ATELE T hematocrit 39.7 % 34.0-4 6.6 Not Available [facility] [address] [place], [address], 03/26/2023 19:08:34 03/26/20 23 03/26/2023 CBC WITH DIFFE RENTI AL/PL ATELE T MCV 93 fL 79-97 Not Available [facility] [address] [place], [address], 03/26/2023 19:08:34 03/26/20 23 03/26/2023 CBC WITH DIFFE RENTI AL/PL ATELE T MCH 29.4 pg 26.6-3 3.0 Not Available [facility] [address] [place], [address], 03/26/2023 19:08:34 03/26/20 23 03/26/2023 CBC WITH DIFFE RENTI AL/PL ATELE T MCHC 31.7 g/dL 31.5-3 5.7 Not Available [facility] [address] [place], [address], 03/26/2023 19:08:34 03/26/20 23 03/26/2023 CBC WITH DIFFE RENTI AL/PL ATELE T RDW 12.7 % 11.5-1 4.5 Not Available [facility] [address] [place], [address], 03/26/2023 19:08:34 03/26/20 23 03/26/2023 CBC WITH DIFFE RENTI AL/PL ATELE T platelets 302 x10e3 /uL 150-45 0 Not Available [facility] [address] [place], [address], 03/26/2023 19:08:34 03/26/20 23 03/26/2023 CBC WITH DIFFE RENTI AL/PL ATELE T neutrophils 67 % notest b. Not Available [facility] [address] [place], [address], 03/26/2023 19:08:34 03/26/20 23 03/26/2023 CBC WITH DIFFE RENTI AL/PL ATELE T lymphs 25 % notest b. Not Available [facility] [address] [place], [address], 03/26/2023 19:08:34 03/26/20 23 03/26/2023 CBC WITH DIFFE RENTI AL/PL ATELE T monocytes 6 % notest b. Not Available [facility] [address] [place], [address], 03/26/2023 19:08:34 03/26/20 23 03/26/2023 CBC WITH DIFFE RENTI AL/PL ATELE T eos 2 % notest b. Not Available [facility] [address] [place], [address], 03/26/2023 19:08:34 03/26/20 23 03/26/2023 CBC WITH DIFFE RENTI AL/PL ATELE T basos 0 % notest b. Not Available [facility] [address] [place], [address], 03/26/2023 19:08:34 03/26/20 23 03/26/2023 CBC WITH DIFFE RENTI AL/PL ATELE T neutrophils (absolute) 4.0 x10e3 /uL 1.4-7. 0 Not Available [facility] [address] [place], [address], 03/26/2023 19:08:34 03/26/20 23 03/26/2023 CBC WITH DIFFE RENTI AL/PL ATELE T lymphs (absolute) 1.5 x10e3 /uL 0.7-3. 1 Not Available [facility] [address] [place], [address], 03/26/2023 19:08:34 03/26/20 23 03/26/2023 CBC WITH DIFFE RENTI AL/PL ATELE T monocytes(ab solute) 0.4 x10e3 /uL 0.1-0. 9 Not Available [facility] [address] [place], [address], 03/26/2023 19:08:34 03/26/20 23 03/26/2023 CBC WITH DIFFE RENTI AL/PL ATELE T eos (absolute) 0.1 x10e3 /uL 0.0-0. 4 Not Available [facility] [address] [place], [address], 03/26/2023 19:08:34 03/26/20 23 03/26/2023 CBC WITH DIFFE RENTI AL/PL ATELE T baso (absolute) 0.0 x10e3 /uL 0.0-0. 2 Not Available [facility] [address] [place], [address], 03/26/2023 19:08:34 03/26/20 23 03/26/2023 CBC WITH DIFFE RENTI AL/PL ATELE T immature granulocytes 0.3 % notest b. Not Available [facility] [address] [place], [address], 03/26/2023 19:08:34 03/26/20 23 03/26/2023 CBC WITH DIFFE RENTI AL/PL ATELE T immature grans (abs) 0.0 x10e3 /uL 0.0-0. 1 Not Available [facility] [address] [place], [address], 03/26/2023 19:08:34 03/26/20 23 03/26/2023 CBC WITH DIFFE RENTI AL/PL ATELE T NRBC 0 % 0-0 Not Available [facility] [address] [place], [address], 03/26/2023 19:08:34 03/26/20 23 03/27/2023 ALBUM IN/CR EAT RATIO , ELISHA Haney UR creatinine, urine 404.7 mg/dL notest ab. Not Available [facility] ([facility]) [address] [place], [address], 03/27/2023 10:13:47 03/26/20 23 03/27/2023 ALBUM IN/CR EAT RATIO , ELISHA Haney UR albumin, urine 29.5 ug/mL notest ab. Not Available [facility] ([facility]) [address] [place], [address], 03/27/2023 10:13:47 03/26/20 23 03/27/2023 ALBUM IN/CR EAT RATIO , ELISHA M UR alb/creat ratio 7 mg/g_ creat 0-29 Sera l: 0 - 29 Moder ately incre ased: 30 - 300 Sever shelia incre ased: >300 Not Available [facility] ([facility]) [address] [place], [address], 03/27/2023 10:13:47 11/05/19 24 11/06/2023 LIPID PANEL cholesterol, total 123 mg/dL 100-19 9 Not Available [facility] ([facility]) [address] [place], [address], 11/06/2023 09:13:48 11/05/19 24 11/06/2023 LIPID PANEL triglyceride s 106 mg/dL 0-149 Not Available [facility]) [address] [place], [address], 11/06/2023 09:13:48 11/05/19 24 11/06/2023 LIPID PANEL HDL cholesterol 60 mg/dL >39 Not Available [facility] [address] [place], [address], 11/06/2023 09:13:48 11/05/19 24 11/06/2023 LIPID PANEL VLDL cholesterol leann 19 mg/dL 5-40 Not Available [facility]) [address] [place], [address], 11/06/2023 09:13:48 11/05/19 24 11/06/2023 LIPID PANEL LDL chol calc (nih) 44 mg/dL 0-99 Not Available [facility]) [address] [place], [address], 11/06/2023 09:13:48 11/05/19 24 11/06/2023 COMP. METAB OLIC PANEL (14) glucose 85 mg/dL 70-99 Not Available [facility] ([facility]) [address] [place], [address], 11/06/2023 09:13:49 11/05/19 24 11/06/2023 COMP. METAB OLIC PANEL (14) BUN 12 mg/dL 6-20 Not Available [facility] ([facility]) [address] [place], [address], 11/06/2023 09:13:49 11/05/19 24 11/06/2023 COMP. METAB OLIC PANEL (14) creatinine 0.81 mg/dL 0.57-1 .00 Not Available [facility] ([facility]) [address] [facility] [place], [address], 11/06/2023 09:13:49 11/05/19 24 11/06/2023 COMP. METAB OLIC PANEL (14) eGFR 98 mL/mi n/1.7 3 >59 Not Available [facility] ([facility]) [address] [facility] [place], [address], 11/06/2023 09:13:49 11/05/19 24 11/06/2023 COMP. METAB OLIC PANEL (14) BUN/creatini ne ratio 15 9-23 Not Available [facility] ([facility]) [address] [facility] [place], [address], 11/06/2023 09:13:49 11/05/19 24 11/06/2023 COMP. METAB OLIC PANEL (14) sodium 142 mmol/ L 134-14 4 Not Available [facility] ([facility]) [address] [facility] [place], [address], 11/06/2023 09:13:49 11/05/19 24 11/06/2023 COMP. METAB OLIC PANEL (14) potassium 4.2 mmol/ L 3.5-5. 2 Not Available [facility] ([facility]) [address] [facility] [place], [address], 11/06/2023 09:13:49 11/05/19 24 11/06/2023 COMP. METAB OLIC PANEL (14) chloride 105 mmol/ L 96-106 Not Available [facility] ([facility]) [address] [facility] [place], [address], 11/06/2023 09:13:49 11/05/19 24 11/06/2023 COMP. METAB OLIC PANEL (14) carbon dioxide, total 23 mmol/ L 20-29 Not Available [facility] ([facility]) [address] [facility], [place], [address], 11/06/2023 09:13:49 11/05/19 24 11/06/2023 COMP. METAB OLIC PANEL (14) calcium 9.2 mg/dL 8.7-10 .2 Not Available [facility] ([facility]) [address] [facility], [place], [address], 11/06/2023 09:13:49 11/05/19 24 11/06/2023 COMP. METAB OLIC PANEL (14) protein, total 7.0 g/dL 6.0-8. 5 Not Available [facility] ([facility]) [address] [facility], [place], [address], 11/06/2023 09:13:49 11/05/19 24 11/06/2023 COMP. METAB OLIC PANEL (14) albumin 4.6 g/dL 3.9-4. 9 Not Available [facility] ([facility]) [address] [facility], [place], [address], 11/06/2023 09:13:49 11/05/19 24 11/06/2023 COMP. METAB OLIC PANEL (14) globulin, total 2.4 g/dL 1.5-4. 5 Not Available [facility] ([facility]) [address] [place], [address], 11/06/2023 09:13:49 11/05/19 24 11/06/2023 COMP. METAB OLIC PANEL (14) A/G ratio 1.9 1.2-2. 2 Not Available [facility] ([facility]) [address] [facility], [place], [address], 11/06/2023 09:13:49 11/05/19 24 11/06/2023 COMP. METAB OLIC PANEL (14) bilirubin, total 0.3 mg/dL 0.0-1. 2 Not Available [facility] ([facility]) [address] [facility] [place], [address], 11/06/2023 09:13:49 11/05/19 24 11/06/2023 COMP. METAB OLIC PANEL (14) alkaline phosphatase 82 IU/L 44-121 Not Available [facility]) [address] [place], [address], 11/06/2023 09:13:49 11/05/19 24 11/06/2023 COMP. METAB OLIC PANEL (14) AST (SGOT) 22 IU/L 0-40 Not Available [facility] ([facility]) [address] [facility], [place], [address], 11/06/2023 09:13:49 11/05/19 24 11/06/2023 COMP. METAB OLIC PANEL (14) ALT (SGPT) 18 IU/L 0-32 Not Available [facility] ([facility]) [address] [place], [address], 11/06/2023 09:13:49 11/05/19 24 11/06/2023 CBC WITH DIFFE RENTI AL/PL ATELE T WBC 6.8 x10e3 /uL 3.4-10 .8 Not Available [facility] ([facility]) [address] [place], [address], 11/06/2023 09:13:50 11/05/19 24 11/06/2023 CBC WITH DIFFE RENTI AL/PL ATELE T RBC 3.88 x10e6 /uL 3.77-5 .28 Not Available [facility] ([facility]) [address] [place], [address], 11/06/2023 09:13:50 11/05/19 24 11/06/2023 CBC WITH DIFFE RENTI AL/PL ATELE T hemoglobin 12.1 g/dL 11.1-1 5.9 Not Available [facility] ([facility]) [address] [facility], [place], [address], 11/06/2023 09:13:50 11/05/19 24 11/06/2023 CBC WITH DIFFE RENTI AL/PL ATELE T hematocrit 35.4 % 34.0-4 6.6 Not Available [facility] ([facility]) [address] [facility], [place], [address], 11/06/2023 09:13:50 11/05/19 24 11/06/2023 CBC WITH DIFFE RENTI AL/PL ATELE T MCV 91 fL 79-97 Not Available [facility] ([facility]) [address] [facility], [place], [address], 11/06/2023 09:13:50 11/05/19 24 11/06/2023 CBC WITH DIFFE RENTI AL/PL ATELE T MCH 31.2 pg 26.6-3 3.0 Not Available [facility] ([facility]) [address] [place], [address], 11/06/2023 09:13:50 11/05/19 24 11/06/2023 CBC WITH DIFFE RENTI AL/PL ATELE T MCHC 34.2 g/dL 31.5-3 5.7 Not Available [facility] ([facility]) [address] [place], [address], 11/06/2023 09:13:50 11/05/19 24 11/06/2023 CBC WITH DIFFE RENTI AL/PL ATELE T RDW 12.7 % 11.7-1 5.4 Not Available [facility] ([facility]) [address] [place], [address], 11/06/2023 09:13:50 11/05/19 24 11/06/2023 CBC WITH DIFFE RENTI AL/PL ATELE T platelets 304 x10e3 /uL 150-45 0 Not Available [facility] ([facility]) [address] [facility], [place], [address], 11/06/2023 09:13:50 11/05/19 24 11/06/2023 CBC WITH DIFFE RENTI AL/PL ATELE T neutrophils 72 % notest ab. Not Available [facility] ([facility]) [address] [facility], [place], [address], 11/06/2023 09:13:50 11/05/19 24 11/06/2023 CBC WITH DIFFE RENTI AL/PL ATELE T lymphs 19 % notest ab. Not Available [facility] ([facility]) [address] [facility], [place], [address], 11/06/2023 09:13:50 11/05/19 24 11/06/2023 CBC WITH DIFFE RENTI AL/PL ATELE T monocytes 7 % notest ab. Not Available [facility] ([facility]) [address] [facility], [place], [address], 11/06/2023 09:13:50 11/05/19 24 11/06/2023 CBC WITH DIFFE RENTI AL/PL ATELE T eos 1 % notest ab. Not Available [facility] ([facility]) [address] [place], [address], 11/06/2023 09:13:50 11/05/19 24 11/06/2023 CBC WITH DIFFE RENTI AL/PL ATELE T basos 1 % notest ab. Not Available [facility] ([facility]) [address] [place], [address], 11/06/2023 09:13:50 11/05/19 24 11/06/2023 CBC WITH DIFFE RENTI AL/PL ATELE T neutrophils (absolute) 4.9 x10e3 /uL 1.4-7. 0 Not Available [facility] ([facility]) [address] [place], [address], 11/06/2023 09:13:50 11/05/19 24 11/06/2023 CBC WITH DIFFE RENTI AL/PL ATELE T lymphs (absolute) 1.3 x10e3 /uL 0.7-3. 1 Not Available [facility] ([facility]) [address] [facility], [place], [address], 11/06/2023 09:13:50 11/05/19 24 11/06/2023 CBC WITH DIFFE RENTI AL/PL ATELE T monocytes(ab solute) 0.4 x10e3 /uL 0.1-0. 9 Not Available [facility] ([facility]) [address] [facility], [place], [address], 11/06/2023 09:13:50 11/05/19 24 11/06/2023 CBC WITH DIFFE RENTI AL/PL ATELE T eos (absolute) 0.1 x10e3 /uL 0.0-0. 4 Not Available [facility] ([facility]) [address] [facility], [place], [address], 11/06/2023 09:13:50 11/05/19 24 11/06/2023 CBC WITH DIFFE RENTI AL/PL ATELE T baso (absolute) 0.0 x10e3 /uL 0.0-0. 2 Not Available [facility] ([facility]) [address] [facility], [place], [address], 11/06/2023 09:13:50 11/05/19 24 11/06/2023 CBC WITH DIFFE RENTI AL/PL ATELE T immature granulocytes 0 % notest ab. Not Available [facility] ([facility]) [address] [facility], [place], [address], 11/06/2023 09:13:50 11/05/19 24 11/06/2023 CBC WITH DIFFE RENTI AL/PL ATELE T immature grans (abs) 0.0 x10e3 /uL 0.0-0. 1 Not Available [facility] ([facility]) [address], [place], [address], 11/06/2023 09:13:50 06/17/2006/16/2024 trans -thor acic echoc ardio gram (TTE) (PROC ) No observ ation record ed. [place] [id number] [facility] [address], [place], [address], 06/19/2024 12:31:17 Result Notes None recorded. Problems Name Problem SNOMED Code Status Onset Date Resolution Date Notes Provider Name and Address Organization Details Recorded Time Elevated blood-pressure reading without diagnosis of hypertension 437519236 Active 2022 FABBY RENE Attn: Accountricardo g,[address], [place], [address], [place] [facility] 3 13:59:58 Essential hypertension 32458395 Active 2023 FABBY RENE Attn: Accountricardo g,[address], [place], [address], [place] [facility] 4 14:04:37 Obesity 941523454 Active 2023 FABBY RENE Attn: Accountricardo g,[address], [place], [address], [place] [facility] 4 14:06:18 Problem Notes None recorded. Procedures Surgical History Date Name Laterality Status Provider Name and Address Organization Details Recorded Time 11/27/2023 Date of Last Pap Smear completed FABBY RENE Attn: Accounting,[address] [facility] [place], [address], [place] [facility] 12/04/2023 12:47:50 Imaging Results Imaging Date Name Status LastModified by Organization Details LastModified Time 06/16/2024 trans-thoracic echocardiogram (TTE) (PROC) completed [address] [facility] [address], [place], [address], 06/19/2024 12:31:17 Procedure Notes None recorded. Medical Equipment None Reported. Allergies No known drug allergies Medications Name Sig Start Date Stop Date Status Note LastModified by Organization Details LastModified Time nifedipine ER 30 mg tablet,exte nded release 24 hr TAKE 1 TABLET BY MOUTH EVERY DAY 05/19 completed Not Available Not Available Not Available cyclobenzap rine 10 mg tablet 12/03 completed Not Available Not Available Not Available doxycycline hyclate 100 mg capsule TAKE 1 CAPSULE BY MOUTH TWICE DAILY 12/03 completed Not Available Not Available Not Available azithromyci n 250 mg tablet TAKE 2 TABLETS BY MOUTH FOR 1 DAY THEN TAKE 1 TABLET BY MOUTH DAILY FOR 4 DAYS 04/18 completed Not Available Not Available Not Available fluconazole 150 mg tablet TAKE 1 TABLET BY MOUTH NOW 04/18 completed Not Available Not Available Not Available metronidazo le 0.75 % (37.5 mg/5 gram) vaginal gel INSERT 1 APPLICATO RFUL VAGINALLY AT BEDTIME FOR 5 NIGHTS active Not Available Not Available No t Available prednisone 20 mg tablet 04/18 completed Not Available Not Available Not Available moxifloxaci n 400 mg tablet TAKE 1 TABLET BY MOUTH DAILY UNTIL ALL TAKEN 12/03 completed Not Available Not Available Not Available metronidazo le 500 mg tablet TAKE 1 TABLET BY MOUTH TWICE DAILY FOR 7 DAYS 04/18 completed Not Available Not Available Not Available amlodipine 5 mg tablet active Not Available Not Available Not Available doxycycline monohydrate 100 mg tablet TAKE 1 TABLET BY MOUTH TWICE DAILY 11/25 completed Not Available Not Available Not Available triamcinolo ne acetonide 0.1 % topical cream active Not Available Not Available Not Available amoxicillin 875 mg tablet Take 1 tablet every 12 hours by oral route. 04/18 completed Not Available Not Available Not Available nifedipine ER 60 mg tablet,exte nded release 24 hr TAKE 1 TABLET BY MOUTH EVERY DAY 2024 active Not Available Not Available Not Avai lable methylpredn isolone 4 mg tablets in a dose pack FOLLOW PACKAGE DIRECTION S 04/18 completed Not Available Not Available Not Available ondansetron 4 mg disintegrat ing tablet active Not Available Not Available N ot Available etonogestre l 0.12 mg-ethinyl estradiol 0.015 mg/24 hr vaginal ring INSERT 1 RING VAGINALLY EVERY MONTH 12/03 completed Not Available Not Available Not Available azithromyci n 500 mg tablet TAKE 2 TABLETS BY MOUTH STAT 04/18 completed Not Available Not Available Not Available drospirenon e 3 mg-ethinyl estradiol 0.02 mg tablet TAKE 1 TABLET BY MOUTH EVERY DAY 12/03 completed Not Available Not Available Not Available Carla 30 mg tablet TAKE 1 TABLET BY MOUTH EVERY DAY 12/03 completed Not Available Not Available Not Available My Way 1.5 mg tablet TAKE 1 TABLET BY MOUTH 1 TIME 12/03 completed Not Available Not Available Not Available Estarylla 0.25 mg-35 mcg tablet Take 1 tablet every day by oral route. 12/03 completed Not Available Not Available Not Available Vitals Date Recorded Body height Body mass index (BMI) Body weight Body temperature Heart rate Oxygen saturation Oxygen saturation in Arterial blood by Pulse oximetry Systolic blood pressure Diastolic blood pressure Provider Name and Address Organization Details Last Updated DateTime 0 170.18 cm 34.5 kg/m2 12646.3 2 g 98.6 [degF] 85 /min 98 % 98 % 128 mm[Hg] 80 mm[Hg] Yoselin Christie [place] 0 16:19:21 Date Recorded Body height Provider Name an d Address Organization Details Last Updated DateTime 05/12/2020 170.18 cm Yoselin Christie [place] 05/12/2020 15:54:08 Date Recorded Body weight Body mass index (BMI) Body height Systolic blood pressure Diastolic blood pressure Provider Name and Address Organization Details Last Updated DateTime 03/26/2023 71566.58 g 33.2 kg/m2 170.18 cm 122 mm[Hg] 84 mm[Hg] Yoselin Christie [place] 3 12:45:53 Date Recorded Body height Body mass index (BMI) Body weight Heart rate Systolic blood pressure Diastolic blood pressure Provider Name and Address Organization Details Last Updated DateTime 4 170.18 cm 35.1 kg/m2 300786. 69 g 84 /min 128 mm[Hg] 82 mm[Hg] Yoselin Christie [place] - [facility] 4 12:37:29 Social History Question Answer Notes LastModified by Organizat ion Details LastModified Time Tobacco Smoking Status Never Smoker Yoselin Dunhamarza [facility] [place] [place] 10/28/2019 16:20:49 What Is Your Level Of Alcohol Consumption? None Information not available 12/04/2023 What Is Your Level Of Caffeine Consumption? Moderate Information not available 10/28/2019 What Type Of Diet Are You Following? REGULAR Information not available 10/28/2019 Do You Or Have You Ever Used E-cigarettes Or Vape? Never Used Electronic Cigarettes Information not available 10/28/2019 Hard Of Hearing Or Deaf In One Or Both Ears? No Information not available 10/28/2019 Legally Blind In One Or Both Eyes? No Information no t available 10/28/2019 Live Alone Or With Others? With Others Information not available 10/28/2019 What Was The Date Of Your Most Recent Tobacco Screening? 12/04/2023 Information not available 12/04/2023 How Many Children Do You Have? 2 Information not available 10/28/2019 Are You Sexually Active? Yes Information not available 12/04/2023 Do You Have Smoke And Carbon Monoxide Detectors In Your Home? Yes Information not available 12/04/2023 Are You Passively Exposed To Smoke? No Information no t available 10/28/2019 Do You Or Have You Ever Used Smokeless Tobacco? Never Used Smokeless Tobacco Information not available 10/28/2019 How Much Tobacco Do You Smoke? No Information not available 10/28/2019 General Stress Level Low Information not available 10/28/2019 Do You Use Any Illicit Or Recreational Drugs? No Information not available 12/04/2023 Has Tobacco Cessation Counseling Been Provided? Yes Information not available 12/04/2023 On What Date Was Tobacco Cessation Counseling Provided? 12/04/2023 Information not available 12/04/2023 Sex: Unknown Functional Status Question Answer Note LastModified by Organization D etails LastModified Time Are you able to care for yourself? Yes Information n ot available 10/28/2019 Mental Status None recorded. Family History Relationship Description Onset Age of this Age Resolved Age Notes LastModified by Organization Details LastModified Time Father Hypertensive disorder Not available 2022 13:06:51 Mother Hypertensive disorder Not available 2022 13:06:51 Paternal Grandmother Hypertensive disorder Not available 2022 13:06:51 Paternal Grandfather Hypertensive disorder Not available 2022 13:06:51 Paternal Grandfather Coronary arterioscler osis Not available 2022 13:07:15 Sister Asthma 3 Not available 12/04/2023 12:48:52 Medical History Condition Response Coronary Artery Disease N Other N Atrial Fibrillation N High Blood Pressure N Kidney or Bladder Problems N Thyroid Problems N GI Problems N Depression N COPD N Blood Clots N Skin Problems N Anemia N Heart Attack (NC) N Anxiety Disorder N Diabetes N Muscle, Joint, or Bone Problems N Seizures/Epilepsy N Acid Reflux (GERD) N Cancer N Stroke N Asthma N Allergies N High Cholesterol N Hepatitis N Liver Disease N Headaches N Heart Failure N Osteoporosis N Gynecological History Statement/Question Response Flow Moderate Date of LMP 10/27/2019 Frequency of Cycle (Q days) 28 Menses Monthly Y Date of Last Pap Smear 11/27/2023 Duration of Flow (days) 4 Age at Menarche 16 Current Control Method None Age at First Child 20 LMP Definite Obstetrics History GPAL:G 2 P 2 0 0 2 Type Value Multiple Births 0 Full Term 2 Induced 0 Spontaneous 0 Premature 0 Living 2 Ectopics 0 Total 2 Past Encounters Encounter ID Performer Location Encounter Start Date Encounter Closed Date Diagnosis/Indication Diagnosis SNOMED-CT Code Diagnosis ICD10 Code Diagnosis Note [id number] [facility] [place] [facility] [address] [place] [address] 04/17/2019 17:06:06 04/18/2019 08:14:44 Family planning surveillance 877429883 Z30.09 discussed different options and she would prefer the pill. Negative test. - start pill packs [id number] [facility] [place] [facility] [address] [place] [address] 10/28/2019 16:11:05 10/29/2019 12:13:50 Sick child 179670841 Z63.79 patient presents for [place] paperwork. She takes care of her son whois three and has frequent asthma exacerbati ons. She has missed days at work and needs it filled out. - papers filled and returned to patient [id number] Yoselin Christie [facility] [address] [place] [address] 04/05/2020 10:01:04 04/06/2020 07:59:42 [id number] FABBY RENE [facility] [address] [place] [address] 05/12/2020 15:53:03 05/14/2020 09:59:02 Sick child 670021524 Z63.79 patient presents for [place] paperwork. She takes care of her son who is three and has frequent asthma exacerbati ons. She has missed days at work and needs it filled out. - patient bringing papers tomorrow [id number] FABBY RENE [facility] [address] [place] [address] 03/26/2023 12:38:48 03/26/2023 14:44:05 Elevated blood-pressure reading without diagnosis of hypertension 596474388 R03.0 Advised to check BP regularly with a goal of <135/85, if BP consistent ly >140/90, advised to contact clinicBP: L 122/84, R 128/76Disc ussed DASH dietAdvise d weight loss and diet is best way to control BPAdvised 30 minutes of exercise minimum dailyAdvis ed tobacco, alcohol, caffeine all increase BPAdvised goal for BP is <140/90 [id number] FABBY RENE [facility] [address] [place] [address] 12/04/2023 12:28:47 12/04/2023 13:19:19 Essential hypertension 46589057 I10 stop amlodipine and start nifedipine f/u in clinic one week for BP checkf/u wit obgyncheck BP at [facility] reviewed, normal 81686408 Z33.1 [address] [place] Obesity 371987800 E66.9 advised healthy diet for pregnancyi ncrease water intakeincr ease proteinwat ch processed foods Health Concerns Section Related Observation LastModified by Organization Detai ls LastModified Time None Recorded Concern Status LastModified by Organization Details LastModified Time None Recorded Advance Directives Directive None Recorded Payers Encounter Date Sequence Insurance Name Policy Number Policy Vides Covered Member ID Vides Member ID Guarantor Name 10/28/2019 1 [facility] PRIOR TO 02/10/2021 (MEDICAID REPLACEMENT - HMO) Ludwig Chung [id number] Ludwig Chung 04/05/2020 1 [facility] PRIOR TO 02/10/2021 (MEDICAID REPLACEMENT - HMO) Ludwig Chung [id number] Ludwig Chung 05/12/2020 1 [facility] PRIOR TO 02/10/2021 (MEDICAID REPLACEMENT - HMO) Ludwig Chung [id number] Ludwig Chung 03/26/2023 1 [facility] ON OR AFTER 02/10/21 (MEDICAID REPLACEMENT - HMO) Ludwig Chung [id number] Ludwig Chung 12/04/2023 1 [facility] ON OR AFTER 02/10/21 (MEDICAID REPLACEMENT - HMO) Ludwig Chung [id number] Ludwig Chung 12/04/2023 2 [place] [facility] [place] [facility] PUBLIC AID Ludwig Chung [id number] Ludwig Chung Notes Date Note Type Note Provider Name and Address Organization Details Recorded Time 10/28/2019 text/html Patient presents for FMLA paperwork patient needs fmla paper as she takes care of her son who has asthma exacerbations all the time. FABBY RENE Attn: [employer] [place], [address], [facility] - [place] 10/28/2019 21:13:43 05/12/2020 text/html Patient presents for FMLA paperwork patient needs fmla paper as she takes care of her son who has asthma exacerbations all the time. Needs FMLA through winter as Jasvir has most of his exacerbations. He has appointemnt next month with pulmonology. FABBY RENE Attn: [employer],[address], [place], [address], [facility] - [facility] 05/12/2020 16:37:48 03/26/2023 text/html Ludwig is a 32 YO F here for my blood pressure has been high. last seen in clinic 2019 Pt went to Mar 15 in [place] for viral illness and was told her BP was 160/102. She went to [facility] ER on Sunday with headache and elevated BP (160/97). BP at [facility] was 157/106. They gave her an IV but no labs were drawn. She does not smoke cigarettes, drink alcohol. She does have family history on both sides of elevated BP. Paternal grandfather has stent placed. She continues to have elevated BP at home. denies cp, sob, palpitations. FABBY RENE Attn: [employer] [facility] [place], [address], [facility] - [facility] 03/26/2023 14:00:30 12/04/2023 text/html Ludwig is a 33 YO F here for BP refills She has been taking medication as prescribed but did run out and BP spiked. She never scheduled f/u after last acute visit. she has not checked BP at home. She stopped taking ocp and found out recently she is 5 weeks . she has not seen ob yet but will make appointment at Dr Salvador office. denies cp, sob, LE edema, headaches. FABBY RENE Attn: [employer] [facility], [place], [address], [facility] - [place] 12/04/2023 14:07:26 OBGyn Episode No OBEpisode recorded.
--- OUTSIDE RECORDS SUMMARY | 2024-09-29 16:45 | XMS_ITS | Referral Summary ---
[facility] Address [address] [place] [phone] Care Team Providers Care Meter Reading Clerk Name Role Phone Teresa Portillo Primary Care [...] on file Sexual Orientation Not on file Last Filed Vital Signs Vital Sign Reading [...] 02/07/2024 2:25 PM CDT Plan of Treatment Not on file Insurance COUNTS INCLUDE [id number] BEDS AT [facility] Care Teams Meter Reading Clerk Relationship Specialty Start Date End Date Teresa Portillo PA PCP - General Physician Enrichment Teacher 09/26/22
== END 2024-09-29 15:50 | disposition home or self-care (01) ==
LOC: ANHOBOP 14:07 → ANHOBPP 14:09
PROVIDERS: PCP Obstetrics & Gynecology Gynecology; Visit Provider Obstetrics & Gynecology Gynecology
DX: O41.8X90 Other specified disorders of amniotic fluid and membranes, unspecified trimester, not applicable or unspecified (principal); Z3A.00 Weeks of gestation of pregnancy not specified
CPT/HCPCS: 59025; 84112